=== PATIENT | female | born 1975 | race Caucasian/White ===

== ENCOUNTER 2019-03-12 15:06 | Outpatient (CLI) | payer OTHER, SELFPAY ==
--- NOTE | 2019-03-12 15:21 | MM_ITS ---
WS: [id number] SCREENING DIGITAL MAMMOGRAM WITH CAD HISTORY: SCREENING COMPARISON: None available. Bilateral CC and MLO views submitted. Computer aided detection analyzed. Breast composition: There are scattered areas of fibroglandular density. No suspicious masses, microc alcifications or architectural distortion. MM/[place] [id number] IMPRESSION: BI-RADS: 1-Negative FOLLOW UP: 1 Year Follow-up
== END 2019-03-12 15:07 | disposition home or self-care (01) ==
LOC: RADSHAW 15:10
PROVIDERS: Family Provider Nurse Practitioner; PCP Nurse Practitioner; Visit Provider Nurse Practitioner
DX: Z12.31 Encounter for screening mammogram for malignant neoplasm of breast (principal)
CPT/HCPCS: 77067

== ENCOUNTER → 2019-05-17 10:44 | Outpatient (BNVA) | payer OTHER, SELFPAY | PROVIDERS: Family Provider Nurse Practitioner; PCP Nurse Practitioner; Visit Provider Nurse Practitioner Family | DX: J06.9 Acute upper respiratory infection, unspecified (principal); B96.89 Other specified bacterial agents as the cause of diseases classified elsewhere | CPT/HCPCS: 87081; 87880 ==

== ENCOUNTER 2020-09-14 21:13 | Emergency (ER) | payer BC, SELFPAY ==
[2020-09-14 21:53] VITALS: BP 104/72; PULSE 96; RESP 20; TEMP 36.8; O2SAT 94; BMI 37.0
--- NOTE | 2020-09-14 22:46 | XRR_ITS ---
PROCEDURE INFORMATION: Exam: XR Chest Exam date and time: 09/14/2020 10:46 PM Age: 45 years old Clinical indication: Shortness of breath; Additional info: SOB TECHNIQUE: Imaging protocol: XR of the chest. Views: 1 view. COMPARISON: CR Chest 2 views* [id number] 07/26/2014 8:58 AM FINDINGS: Lungs: No CHF/pulmonary edema. Poor inspiration somewhat limits evaluation, especially of the lung bases. Interval development of moderate scattered parenchymal opacities in the mid and lower lungs bilaterally. Findings are suspicious for pneumonitis, atelectasis probably less likely. Please correlate clinically. Pleural spaces: No visible pneumothorax. No definite pleural fluid. Heart/Mediastinum: Heart size is upper range of normal. Bones/joints: No significant acute finding. XR/XR chest 1V portable [id number] IMPRESSION: 1. Interval development of moderate scattered parenchymal opacities in the mid and lower lungs bilaterally. Findings are suspicious for pneumonitis, atelectasis probably less likely. Please correlate clinically. 2. Other findings discussed above.
--- NOTE | 2020-09-15 00:37 | ECG_ITS ---
[facility] Test Date: 2020-09-15 Pat Name: Amber Hanna Department: Room: Gender: Female [employer] Operator: : [id number] Requested By: Lexa Thakur Order Number: [id number] Reading MD: NIKHIL WILKERSON Measurements Intervals [place] Rate: 89 P: 56 AK: 186 QRS: 52 QRSD: 80 T: 62 QT: 345 QTc: 421 Interpretive Statements SINUS RHYTHM Compared to ECG 07/26/2014 09:06:04 No significant changes Electronically Signed On 09-15-2020 14:27:15 CDT by NIKHIL WILKERSON [id number]
--- NOTE | 2020-09-15 00:38 | W.ED.COVID ---
HPI - COVID General: Chief Complaint: COVID symptoms Stated Complaint: Covid Poistive Chest Hurts Time Seen by Provider: 09/15/20 00:29 Source: patient Mode of arrival: ambulatory Limitations: no limitations Triage information: Has fever, cough or shortness of breath. Exposure to COVID + person last 14 days History of Present Illness: HPI Narrative: 45-year-old female states she has had cough congestion not feeling well over the last 10 days. She states she had a Covid test Friday that was positive. States that today she has had slightly more dyspnea. She had some mild pain in her chest tube. States she was concerned she had a history of cardiomyopathy. She denies any vomiting or diarrhea. Patient has had a nonproductive cough and is coughing here but is in no respiratory distress. Her pulse ox is 96% on room air. COVID 19 common symptoms: positive dyspnea; negative fever(s), chills, body aches, headache(s), throat pain, nausea, vomiting or diarrhea COVID 19 other sytmptoms: positive chest pain COVID Results: No Data to Display Review of Systems Const: Denies: fever(s), chills, body aches or change in appetite Eyes: Denies: blurry vision or eye discomfort ENMT: Denies: throat pain or dental pain Card: Reports: chest pain Resp: Reports: dyspnea GI: Denies: abdominal pain, nausea, vomiting or diarrhea : Denies: dysuria Musc: Denies: neck pain or back pain Skin/Breast: Denies: rash Neuro: Denies: headache(s) Psych: Denies: depression Isiah/Lymph: Denies: easy bruising All/Imm: Denies: urticaria Physical Exam Const: COMMON NORMALS: no acute distress, patient oriented x3 and healthy appearing HENMT: COMMON NORMALS: normocephalic and atraumatic HEAD & SCALP: normocephalic and atraumatic Eye: COMMON NORMALS: Equal, round and reactive pupils present and EOMs intact bilaterally PUPIL: Yes Equal, round and reactive pupils present Neck/C-Spine: COMMON NORMALS: full ROM and supple Chest: COMMONS NORMALS: normal inspection of the chest and normal palpation of entire chest wall Resp: COMMON NORMALS: normal respiratory effort, No retractions, No use of accessory muscles and clear to auscultation bilaterally AUSCULTATION: clear to auscultation bilaterally Cardio: COMMON NORMALS: regular rate, regular rhythm and No murmurs present (Cardio) RATE: regular rate RHYTHM: regular rhythm GI: COMMON NORMALS: Normal to inspection, nondistended, normoactive bowel sounds present, Soft to palpation, non-tender and no masses PALPATION: Yes Soft to palpation Extremity: COMMON NORMALS: normal to inspection and full ROM Neuro: COMMON NORMALS: patient oriented x3, moves all extremities and no focal motor deficits Psych: COMMON NORMALS: mental status grossly normal, Normal thought process present and cooperative THOUGHT PROCESS: Normal thought process present Skin: COMMON NORMALS: no rashes or lesions noted and no wounds GENERAL SKIN EXAM: no rashes or lesions noted Course Vital Signs: Vital signs: Vital Signs Temperature 98.2 F 09/14/20 21:53 Pulse Rate 85 09/15/20 01:27 Respiratory Rate 24 H 09/15/20 01:27 Blood Pressure 103/82 09/15/20 01:27 Pulse Oximetry 92 09/15/20 01:28 MDM - COVID MDM Narrative: Medical decision making narrative: Patient presents with COVID-19. She is well-appearing here and pulse ox been 95% on room air. Patient was given Decadron here along with albuterol inhaler and prescribed albuterol Hailer. I informed her to monitor her pulse ox if she has any worsening dyspnea or hypoxia she is return immediately. She understands agrees to plan. Lab Data: Labs: Lab Results 09/15/20 09/15/20 Range/Units 01:18 01:18 WBC 7.9 (4.0-10.0) 10^3/ uL RBC 4.90 (4.1-5.3) 10^6/u L Hgb 14.1 (11.5-15.3) g/dL Hct 43.5 (37.0-47.0) % MCV 88.8 (81-99) fL MCH 28.8 (28.0-34.0) pg MCHC 32.4 (30.0-36.0) g/dL RDW 13.1 (12.1-15.1) % Plt Count 245 (130-400) 10^3/c mm MPV 9.2 (7.4-10.4) fL Neut % (Auto) 75.9 % Lymph % (Auto) 18.9 % [place] % (Auto) 4.3 % Eos % (Auto) 0.0 % Baso % (Auto) 0.3 % Neut # (Auto) 6.02 (1.8-7.7) 10^3/u L Lymph # (Auto) 1.5 (0.8-4.8) 10^3/u L [place] # (Auto) 0.3 (0.2-0.9) 10^3/u L Eos # (Auto) 0.0 (0.0-0.8) 10^3/u L Baso # (Auto) 0.0 (0.0-0.1) 10^3/u L Nucleated RBC % (a uto) 0 % Nucleated RBCs # 0.0 /100WBC Sodium 133 L (136-145) mmol/L Potassium 4.0 (3.5-5.1) mmol/L Chloride 98 (98-107) mmol/L Carbon Dioxide 23 (22-29) mmol/L Anion Gap 16.0 (5-19) BUN 8 (6-20) mg/dL Creatinine 0.6 (0.5-0.9) mg/dL GFR Calculation 108.1 (90-130) mL/min Glucose 97 (65-115) mg/dL Calculated Osmolal ity 274 L (285-295) mOsm/k g Calcium 9.1 (8.5-10.5) mg/dL Total Bilirubin 0.5 (0.15-1.2) mg/dL AST 39 H (0-32) U/L ALT 22 (0-33) U/L Alkaline Phosphata se 71 (35-105) IU/L NT-Pro-B Natriuret Pep 93 (0-125) pg/mL Total Protein 7.6 (6.6-8.7) g/dL Albumin 3.9 (3.5-5.2) g/dL Globulin 3.7 (1.3-4.6) g/dL Imaging Data: CXR: Attestation: I personally reviewed and interpreted this imaging study as follows: My impression: bilateral infiltrates c/w covid 19 EKG Data: EKG 1: Attestation: I personally reviewed and interpreted this EKG as follows: EKG interpretation date: 09/15/20 EKG interpretation time: 01:17 Interpretation: nsr hr [address] or t wave abnormalities qrs 80 qtc 392 COVID Results: No Data to Display Discharge Plan Discharge Patient Disposition: Home Clinical Impression: COVID-19 Condition: Stable Prescriptions: New albuterol sulfate 90 mcg/actuation HFA aerosol inhaler 2 inh INHALATION Q6H PRN (Reason: shortness of breath or wheezing) Qty: 8 RF: 0 No Action lisinopril 5 mg tablet 5 mg PO DAILY RF: 0 magnesium oxide 400 mg magnesium capsule 400 mg PO DAILY RF: 0 carvedilol [Coreg] 6.25 mg tablet 6.25 mg PO BID RF: 0 aspirin 81 mg tablet,delayed release (DR/EC) 81 mg PO DAILY RF: 0 fluticasone propionate [Flonase Allergy Relief] 50 mcg/actuation spray,suspension 1 spray INTRANASAL DAILY RF: 0 sertraline 100 mg tablet 100 mg PO DAILY RF: 0 cetirizine [Zyrtec] 10 mg tablet 10 mg PO DAILY RF: 0 Air Protector 1,000-50 mg tablet, effervescent PO PRNRF: 0 montelukast 10 mg tablet 10 mg PO DAILY RF: 0 amoxicillin-pot clavulanate [Augmentin] 875-125 mg tablet 1 tab PO BID 7 Days Qty: 14 RF: 0 Discharge Orders: Discharge ED (Routine); Ordered 09/15/20 Ordered By: Lexa Thakur Referrals: Evi Fuller APN [Primary Care Provider] - 1-3 days Discharge Diet: Advance as tolerated Discharge Activity: Resume usual activity Patient Instructions: Upper Respiratory Infection (ED) Coding Level of Care Code ED Vice President Of Instruction for Aishwaryag Fwd Exam Comprehensive
[2020-09-15] MEDS: albuterol 8 gm MDI 2 PUFF INHALATION (01:09)
[2020-09-15 01:11] VITALS: PULSE 96; RESP 18; O2SAT 95
[2020-09-15 01:24] LABS: Basophils % 0.3 %; Hematocrit 43.5 % (37.0-47.0); Hemoglobin 14.1 g/dL (11.5-15.3); Lymphocytes # 1.5 10^3/uL (0.8-4.8); Lymphocytes % 18.9 %; Mean Corpuscular HGB Conc 32.4 g/dL (30.0-36.0); Mean Corpuscular Hemoglobin 28.8 pg (28.0-34.0); Mean Corpuscular Volume 88.8 fL (81-99); Mean Platelet Volume 9.2 fL (7.4-10.4); Monocytes # 0.3 10^3/uL (0.2-0.9); Monocytes % 4.3 %; Neutrophils # 6.02 10^3/uL (1.8-7.7); Neutrophils % 75.9 %; Nucleated Red Blood Cells % 0 %; Platelet Count 245 10^3/cmm (130-400); Red Cell Distribution Width 13.1 % (12.1-15.1); White Blood Count 7.9 10^3/uL (4.0-10.0)
[2020-09-15 01:27] VITALS: BP 103/82; PULSE 85; RESP 24; O2SAT 92
[2020-09-15 01:28] VITALS: O2SAT 92
[2020-09-15] MEDS: dexamethasone 4 mg/mL INJ 10 MG IVP (01:29)
[2020-09-15 02:01] LABS: Alanine Aminotransferase 22 U/L (0-33); Albumin Level 3.9 g/dL (3.5-5.2); Alkaline Phosphatase 71 IU/L (35-105); Aspartate Amino Transferase 39 U/L (0-32); Blood Urea Nitrogen 8 mg/dL (6-20); Calcium 9.1 mg/dL (8.5-10.5); Carbon Dioxide 23 mmol/L (22-29); Chloride 98 mmol/L (98-107); Globulin 3.7 g/dL (1.3-4.6); Glomerular Filtration Rate 108.1 mL/min (90-130); Glucose 97 mg/dL (65-115); NT Pro B Type Natriuretic Pept 93 pg/mL (0-125); Osmolality Calculated 274 mOsm/kg (285-295); Sodium 133 mmol/L (136-145); Total Bilirubin 0.5 mg/dL (0.15-1.2); Total Protein 7.6 g/dL (6.6-8.7)
[2020-09-15 02:49] VITALS: BP 110/77; PULSE 92; RESP 20; O2SAT 94
== END 2020-09-15 02:49 | disposition home or self-care (01) ==
PROVIDERS: Emergency Provider Emergency Medicine; PCP Nurse Practitioner
DX: U07.1 COVID-19 (principal); Z79.82 Long term (current) use of aspirin
CPT/HCPCS: 71045; 80053; 83880; 85025; 93005; 94640; 96374; 99284; J1100; J3535

== ENCOUNTER 2024-01-05 11:20 | Outpatient (CLI) | payer BC, SELFPAY ==
--- NOTE | 2024-01-05 11:26 | XRR_ITS ---
PROCEDURE INFORMATION: Exam: XR Lumbosacral Spine Exam date and time: 01/05/2024 11:58 AM Age: 48 years old Clinical indication: Low back pain; Additional info: Lumbar spine pain TECHNIQUE: Imaging protocol: Radiologic exam of the lumbosacral spine. Views: 4 or 5 views. COMPARISON: No relevant prior studies available. FINDINGS: Bones/joints: Partial lumbarization of the S1 body, with a rudimentary S1-2 disc, S1 spina bifida, and 7 mm anterolisthesis of L5 on S1 related to bilateral L5 pars defects. Associated severe loss of L5-S1 disc height and severe facet arthropathy at this level. Remaining lumbar spine demonstrates preserved disc and vertebral body heights with up to moderate/severe lower lumbar facet arthropathy. No acute fracture Soft tissues: Unremarkable. XR/XR lumbar spine min 4V [id number] IMPRESSION: Please see above discussion
--- NOTE | 2024-01-05 11:26 | XRR_ITS ---
PROCEDURE INFORMATION: Exam: XR Right Knee Exam date and time: 01/05/2024 11:58 AM Age: 48 years old Clinical indication: Pain; Knee; Right; Additional info: Knee pain TECHNIQUE: Imaging protocol: Radiologic exam of the right knee. Views: 1 or 2 views. COMPARISON: No relevant prior studies available. FINDINGS: Bones/joints: Normal. Soft tissues: Normal. XR/XR knee RT 1-2V [id number] IMPRESSION: No acute findings.
--- NOTE | 2024-01-05 11:26 | XRR_ITS ---
PROCEDURE INFORMATION: Exam: XR Left Knee Exam date and time: 01/05/2024 11:58 AM Age: 48 years old Clinical indication: Pain; Knee; Bilateral; Additional info: Knee pain TECHNIQUE: Imaging protocol: Radiologic exam of the left knee. Views: 1 or 2 views. COMPARISON: No relevant prior studies available. FINDINGS: Bones/joints: Normal. Soft tissues: Normal. XR/XR knee LT 1-2V [id number] IMPRESSION: No acute findings.
== END 2024-01-05 11:21 | disposition home or self-care (01) ==
PROVIDERS: PCP Nurse Practitioner Family; Visit Provider Nurse Practitioner Family
DX: M43.16 Spondylolisthesis, lumbar region (principal); M47.896 Other spondylosis, lumbar region; M25.561 Pain in right knee
CPT/HCPCS: 72110; 73560

== ENCOUNTER → 2025-02-01 10:56 | Outpatient (BNVA) | payer BC, SELFPAY | PROVIDERS: PCP Nurse Practitioner; Visit Provider Nurse Practitioner | DX: I10 Essential (primary) hypertension (principal) | CPT/HCPCS: 80053; 80061; 83036; 84443; 85025 ==

== ENCOUNTER → 2025-02-16 14:11 | Outpatient (BNVA) | payer BC, SELFPAY | PROVIDERS: PCP Nurse Practitioner; Visit Provider Nurse Practitioner | DX: J02.9 Acute pharyngitis, unspecified (principal) | CPT/HCPCS: 87880 ==